=== PATIENT | male | born 1995 | race Caucasian/White ===

== ENCOUNTER 2016-11-09 15:35 | Emergency (ER) | payer MEDICAID ==
[~2016-11-09] VITALS: Ht 175.3 cm; Wt 70.3 kg
[2016-11-09 15:40] VITALS: BP_SYST 125
--- NOTE | 2016-11-09 15:45 | NUR ---
Pt placed to ER bed 08, report given to LÁZARO Burrell.
--- NOTE | 2016-11-09 15:56 | NUR ---
Dr. Medellin at bedside examining the pt.
--- NOTE | 2016-11-09 16:00 | NUR ---
Pt. to ER AAOx4 c/o epigastric pain 11/04 since this morning, states he is taking amoxicillin status post dental work, denies N/V/D, denies chespt pain denies SOB, sclear speech follows commands
[2016-11-09] MEDS ORDERED: LIDOCAINE VISCOUS 2%, 15 ML UDC MM ONE (16:15)
[2016-11-09] MEDS ORDERED: BELLADONNA ALKALOIDS/PHENOBARB 5 ML UDC PO ONE (16:15)
[2016-11-09] MEDS ORDERED: MAG-AL HYDROX/SIMETH 30 ML UDC PO ONE (16:15)
[2016-11-09 16:50] VITALS: BP_SYST 121
--- NOTE | 2016-11-09 16:50 | NUR ---
Patient given written and verbal discharge instructions and verbalizes understanding. ER MD Dr. Mdeellin discussed with patient the results and treatment provided. Patient in stable condition. ID arm band removed. No Rx given. Patient educated on pain management and to follow up with PMD. Pain Scale 0/10 Opportunity for questions provided and answered.
== END 2016-11-09 16:50 | disposition home or self-care (01) ==
LOC: SED 15:35
DX: R10.13 Epigastric pain (principal)
CPT/HCPCS: 99284; J2001